=== PATIENT | female | born 1950 | race African-American/Black ===

== ENCOUNTER 2021-05-10 12:39 | Emergency (ER) | payer BC ==
[~2021-05-10] VITALS: Ht 172.7 cm; Wt 93.0 kg
[2021-05-10 12:49] VITALS: BP 117/77
--- NOTE | 2021-05-10 12:49 | NUR ---
PT bib PA frm snf for agitation/restlessness since last night. PT ON O2 5LPM VIA TRACH COLLAR SATTING AT 100%. GTUBE NOTED PATENT AND INTACT. SAFETY MEASURES IN PLACE
[2021-05-10] MEDS ORDERED: ENOX40DI SQ (13:01)
[2021-05-10] MEDS ORDERED: ACET-2605 GT (13:01)
[2021-05-10] MEDS ORDERED: MAGN400O6 GT (13:01)
[2021-05-10] MEDS ORDERED: SENN-261 GT (13:01)
[2021-05-10] MEDS ORDERED: LACT100027 GT (13:01)
[2021-05-10] MEDS ORDERED: POLY17PO4 GT (13:01)
[2021-05-10] MEDS ORDERED: METO5SOL2 GT (13:01)
[2021-05-10] MEDS ORDERED: LEVE500T9 GT (13:01)
[2021-05-10] MEDS ORDERED: DOCU50LI GT (13:01)
[2021-05-10] MEDS ORDERED: NA P133E RC (13:01)
[2021-05-10] MEDS ORDERED: IPRA4AER IH (13:01)
[2021-05-10] MEDS ORDERED: BISA10SU11 RC (13:01)
[2021-05-10] MEDS ORDERED: CHLO473M5 MM (13:01)
[2021-05-10] MEDS ORDERED: ACET-868 GT ×2 (13:01)
[2021-05-10] MEDS ORDERED: GLYC2TAB21 GT (13:01)
--- NOTE | 2021-05-10 13:47 | NUR ---
URINE COLLECTED AND SENT TO LAB
--- NOTE | 2021-05-10 13:50 | NUR ---
PHEBOTOMIST AT PT'S BEDSIDE
[2021-05-10 13:54] LABS: BASOPHILS # (AUTO) 0.1 K/uL (0.0-0.2); HEMATOCRIT 34 % (33-45); HEMOGLOBIN 11.2 g/dL (11.5-14.8); LYMPHOCYTES % (AUTO) 37.1 % (20.0-44.0); MEAN CORPUSCULAR HGB CONC 33 g/dl (31.0-36.0); MEAN CORPUSCULAR VOLUME 89 fL (82-100); MONOCYTES # (AUTO) 0.8 K/uL (0.1-1.30); MONOCYTES % (AUTO) 9.4 % (2.0-12.0); NEUTROPHILS % (AUTO) 49.5 % (43.0-81.0); PLATELET COUNT (AUTO) 304 K/uL (150-450); RED BLOOD CELL COUNT(AUTO) 3.79 MIL/uL (4.0-5.2)
[2021-05-10 14:01] LABS: BILIRUBIN,URINE Negative (NEGATIVE); COLOR,URINE YELLOW (YELLOW); LEUKOCYTE ESTERASE ,URINE Negative (NEGATIVE); NITRITE, URINE Negative (NEGATIVE); PROTEIN,URINE Negative (NEGATIVE); UGLUCOSE Negative (NEGATIVE); UROBILINOGEN,URINE 0.2 EU/dL (0.2)
[2021-05-10 14:03] LABS: CALCIUM, SERUM 8.7 mg/dL (8.5-10.1); CARBON DIOXIDE 31 mmol/L (21-32); CHLORIDE 105 mmol/L (98-107); CREATININE 0.8 mg/dL (0.6-1.3); GLUCOSE 114 mg/dL (74-106); POTASSIUM 4.5 mmol/L (3.5-5.1); SODIUM SERUM 140 mmol/L (136-145); UREA NITROGEN, BLOOD 17 mg/dL (7-18)
[2021-05-10 14:09] LABS: ALANINE AMINOTRANSFERASE 46 U/L (12-78); ALBUMIN 2.9 g/dL (3.4-5.0); ALCOHOL, BLOOD < 3 mg/dL (0-0); ALKALINE PHOSPHATASE 98 U/L (46-116); ASPARTATE AMINOTRANSFERASE 22 U/L (15-37); BILIRUBIN,DIRECT 0.1 mg/dL (0.0-0.2); BILIRUBIN,TOTAL 0.2 mg/dL (0.2-1.0); TOTAL PROTEIN, SERUM 7.1 g/dL (6.4-8.2)
[2021-05-10 14:16] LABS: ACETAMINOPHEN < 2 ug/ml (10-30)
--- NOTE | 2021-05-10 14:20 | NUR ---
PT SEEN BY PRASHANTH OLIVARES
--- NOTE | 2021-05-10 14:33 | NUR ---
[facility] JEFFRY HAYNES
--- NOTE | 2021-05-10 15:02 | NUR ---
L HAND 22G S/L; PATENT AND INTACT. BLOOD COLLECTED AND SENT TO LAB
--- NOTE | 2021-05-10 15:04 | NUR ---
COVIDS PCR ANTIGEN SWAB DONE AND SENT
--- NOTE | 2021-05-10 15:14 | NUR ---
ADMISSION PACKET SUBMITTED.
--- NOTE | 2021-05-10 16:02 | NUR ---
PT WILL BE TRANSPORTED VIA [facility] IN 1 HOUR PER [facility] DISPATCHER.
--- NOTE | 2021-05-10 16:26 | NUR ---
REPORT GIVEN TO CLAUDIA FOR SANTIAGO; PT TO BE DISCHARGED TO [facility]
== END 2021-05-10 17:09 ==
LOC: ER 12:41
DX: R10.9 Unspecified abdominal pain (principal); J98.11 Atelectasis; Z20.822 Contact with and (suspected) exposure to COVID-19; Z93.0 Tracheostomy status; Z93.1 Gastrostomy status; J96.10 Chronic respiratory failure, unspecified whether with hypoxia or hypercapnia; Z87.01 Personal history of pneumonia (recurrent); G40.909 Epilepsy, unspecified, not intractable, without status epilepticus; I10 Essential (primary) hypertension
CPT/HCPCS: 36415; 71045; 80048; 80076; 80143; 80307; 80320; 81003; 83605; 84145; 85025; 85730; 87040 ×2; 87081; 87086; 87426; 93005; 99285; C9803 ×2; U0003; G0480

== ENCOUNTER 2022-10-29 19:27 | Emergency (ER) | payer BC, OTHER ==
[~2022-10-29] VITALS: Ht 162.6 cm; Wt 77.1 kg
[~2022-10-29 19:27] MED LIST: ACET-2605 GT; ACET-868 GT; BISA10SU11 RC; CHLO473M5 MM; DOCU50LI GT; ENOX40DI SQ; GLYC2TAB21 GT; IPRA4AER IH; LACT100027 GT; LEVE500T9 GT; MAGN400O6 GT; METO5SOL2 GT; NA P133E RC; POLY17PO4 GT; SENN-261 GT
--- NOTE | 2022-10-29 19:35 | NUR ---
KELSEY COLÓN FROM [facility] FOR RUE PAIN S/P GLF.
--- NOTE | 2022-10-29 21:15 | NUR ---
PT ALERT ANSWERS TO YES OR NO QUESTIONS. RR EVEN AND UNLABORED ON ROOM AIR, SWELLING NOTED ON RIGHT UPPER EXTREMITY, NO OTHER DEFORMITY NOTED. PATIENT TO POX AND HEART MONITOR, VITALS WITHIN LIMITS, FAMILY AT BEDSIDE.
[2022-10-29] MEDS ORDERED: POLY10DR OP (21:22)
--- NOTE | 2022-10-29 21:25 | NUR ---
[facility] CALLED FOR BLS TRANSPORT. ETA 90 MINUTES.
--- NOTE | 2022-10-29 21:45 | NUR ---
REPORT GIVEN TO [facility] FOR CONT OF CARE.
--- NOTE | 2022-10-29 22:24 | NUR ---
REPORT GIVEN TO [facility] Arnaldo CHAVIS FOR TRANSFER BACK TO FACILITY
--- NOTE | 2022-10-29 22:25 | NUR ---
PATIENT DISCHJARGED BACK TO FACILITY IN STABLE CONDITION
--- NOTE | 2022-10-29 22:25 | NUR ---
[facility] TRANSPORT AT BEDSIDE FOR TRANSPORTATION
[2022-10-29 23:09] VITALS: BP 114/75
== END 2022-10-29 22:30 ==
LOC: ER 19:35
DX: M79.601 Pain in right arm (principal); Z79.899 Other long term (current) drug therapy
CPT/HCPCS: 73030-TC; 73060-TC; 93971-TC